=== PATIENT | female | born 1945 | race Caucasian/White ===

== ENCOUNTER 2020-12-07 12:30 | Outpatient (CLI) | payer MEDICARE, SELFPAY ==
--- NOTE | ~2020-12-07 | MR_ITS ---
EXAMINATION: MR knee LT wo con DATE: 12/07/2020 13:18 INDICATION: Medial left knee pain. Meniscal tear. TECHNIQUE: Magnetic resonance imaging (MRI) of the left knee was performed without intravenous contra st. Sequences included coronal PD-weighted FSE, coronal PD-weighted FS FSE, sagittal T2-weighted FSE , sagittal PD-weighted FS FSE and axial PD weighted fat saturated FSE. COMPARISON: None. FINDINGS: Medial compartment: Small radial tear along the inner free edge at the junction of the body and posterior horn of the med ial meniscus. There is partial thickness cartilage loss along the medial tibial plateau and along the anterior to central weightbearing medial femoral condyle where there is mild chondral surface irregu larity. No degenerative subchondral changes. Lateral compartment: Lateral meniscus is normal. Mild chondral surface irregularity and subtle chondral signal heterogenei ty at the central aspect of the lateral tibial plateau. Patellofemoral compartment: Diffuse mild partial-thickness patellar cartilage loss with mild chondral surface irregularity. Small focus of subarticular edema at the central aspect of the lateral patellar facet. There is also diffu se mild partial-thickness trochlear cartilage loss with higher grade chondromalacia at the caudal asp ect of the medial trochlea where there is underlying small central subchondral osteophyte. Ligaments and tendons: Anterior and posterior cruciate ligaments are normal. The medial collateral ligament and fibular jerel ateral ligament complex are normal. The extensor mechanism is normal. The visualized medial and later al hamstring tendons as well as the iliotibial band are normal. Fluid: Small left knee joint effusion at the suprapatellar pouch. No loose osteochondral bodies identified. Small to moderate-sized Pineda's cyst measuring 4.8 x 1.9 x 2.5 cm. Osseous/other: Normal marrow signal aside from the small focus of subarticular edema at the lateral patellar facet.. No fracture or pathologic marrow replacing process. IMPRESSION: 1. Small radial tear along the inner free edge at the junction of the body and posterior horn of the medial meniscus. 2. Mild medial and patellofemoral compartment predominant tricompartmental osteoarthritis. 3. Small left knee joint effusion and small to moderate-sized Pineda's cyst. Reviewed, dictated and finalized at location A. IMPRESSION: 1. Small radial tear along the inner free edge at the junction of the body and posterior horn of the medial meniscus. 2. Mild medial and patellofemoral compartment predominant tricompartmental oste oarthritis. 3. Small left knee joint effusion and small to moderate-sized Pineda's cyst.
== END 2020-12-07 12:31 | disposition home or self-care (01) ==
PROVIDERS: PCP Internal Medicine; Visit Provider Orthopaedic Surgery
DX: S83.242A Other tear of medial meniscus, current injury, left knee, initial encounter (principal); X58.XXXA Exposure to other specified factors, initial encounter; M25.462 Effusion, left knee; M71.22 Synovial cyst of popliteal space [Baker], left knee; M17.12 Unilateral primary osteoarthritis, left knee
CPT/HCPCS: 73721

== ENCOUNTER → 2021-01-03 01:13 | Outpatient (CLI) | payer MEDICARE, SELFPAY ==
[2021-01-03 20:54] LABS: SARS-CoV-2 RNA PCR Negative
== END ==
PROVIDERS: PCP Internal Medicine; Visit Provider Orthopaedic Surgery
DX: Z01.812 Encounter for preprocedural laboratory examination (principal); Z20.822 Contact with and (suspected) exposure to COVID-19
CPT/HCPCS: C9803; U0003; U0005

== ENCOUNTER 2021-01-06 01:21 | Day surgery (SDC) | payer MEDICARE, SELFPAY ==
[2020-12-26 13:39] VITALS: BMI 26.7
--- NOTE | 2021-01-06 06:48 | WPDANESEPPF ---
Anes - Initial Pre Proc Eval Procedure: Operation Date: 01/06/21 07:30 Proposed Procedures p Left Knee Arthroscopic Partial Medial Meniscectomy - Alex Larson MD Date/Time: 01/06/21 06:48 Surgeon: Alex Larson MD Pre Op Diagnosis: medial meniscus tear left knee Patient Data Age: 75 Gender: F Height: 1.65 m Weight: 74.2 kg Allergies Allergy/AdvReac Type Severity Reaction Status Date / Time No Known Allergies Allergy Verified 01/06/21 06:29 Home Medications Medication Instructions Recorded Confirmed Type cholecalciferol (vitamin D3) 125 mcg PO DAILY 12/26/20 01/06/21 History Patient hx anesthesia problems: none Family hx anesthesia problems: none PMFSH Past Medical History Medical History (Updated 12/01/20 @ 09:57 by Alex Larson MD) Lipoedema Lymphedema Mixed hyperlipidemia Polyarthritis Sigmoidoscopy performed Venous insufficiency Surgical History Surgical History (Updated 12/01/20 @ 09:29 by Alona Thomas MA) H/O arthroscopic knee surgery (~2013) Rt H/O hemorrhoidectomy (~2013) H/O repair of rotator cuff (~2010) History of bunionectomy (~2006) & Hammertoe - Rt History of carpal tunnel release (~1993) Bilateral History of cataract surgery (~2014) Hx of hysterectomy (~1982) Family History Family History (Updated 08/25/18 @ 13:12 by DOCTOR UNKNOWN) Father Family history of congestive heart failure Patient's father is Mother Family history of congestive heart failure Patient's mother is Sibling Patient's brother is in good health Other Hypertension Social History Social History Smoking status: Never smoker Alcohol intake: never Substance use: never Living arrangements: with family Additional living arrangements comments: Spiritual care concerns: No Anes - Eval Final PreProcedure Day of Procedure 01/06/21 06:48 Patient weight: overweight Heart: regular rate and rhythm Lungs: clear to auscultation and normal air movement Airway: Mallampati scale class III Neurological: alert and oriented Last oral intake: >/= 8 hours ASA classification: II Emergent: no Anesthetic plan: proceed Anesthesia type and monitoring: general LMA and standard monitoring Informed Consent: The patient's anesthetic plan and its attendant risks and benefits were discussed with the patient/family/POA. Questions were solicited and answers provided to the satisfaction of the patient/family/POA.
[2021-01-06] MEDS: ACETAMINOPHEN 500 MG TABLET 1000 MG PO (07:03)
[2021-01-06] MEDS: LACTATED RINGERS 1,000 ML 30 ML IV CONT (07:03)
[2021-01-06] MEDS: KETOROLAC 15 MG/ML VIAL (*BKC) IV PUSH (07:04)
[2021-01-06 07:14] VITALS: BP 179/78; PULSE 72; RESP 16; TEMP 36.7; O2SAT 97
--- NOTE | 2021-01-06 07:15 | WPDHPUPDATE1 ---
History and Physical Update Update Date/Time: 01/06/21 07:15 History and Physical has been reviewed, including an updated exam of the patient. There are NO changes in the patient's condition. Risks, benefits, and alternatives have been discussed and questions answered. Patient agrees to proceed with procedure.
[2021-01-06] MEDS: ceFAZolin 2 GM/D5W 50 ML 2 GM/50 ML BAG IVPB (07:26)
[2021-01-06] MEDS: BUPIVACAINE/EPINEPHRINE 0.5% 30 ML VIAL INFILTRATE (07:49)
--- NOTE | 2021-01-06 08:06 | PM.PROC ---
Procedure Note - Detailed Date of procedure: 01/06/21 Pre-op diagnosis: medial meniscus tear left knee Medial meniscus tear, left knee. Post-op diagnosis: same Procedure performed: Arthroscopic partial medial meniscectomy, left knee Description of procedure: Extensive tear at the posteromedial corner. Subtotal meniscectomy required. Capsule rent noted. Popliteal fluid expressed. Grade I chondromalacia femur with small area grade 4 at the non weightbearing anteromedial area. Grade 2 medial tibia near the tear. Lateral compartment and ACL normal. Grade 2 central patella. Anesthesia: GETA Surgeon: Alex Larson MD Estimated blood loss (mL): 5 Tourniquet time (min): 12 Complications: None Condition: stable Disposition: PACU Findings: Brief History: The patient complained of knee pain, swelling and mechanical symptoms despite conservative treatment. MRI confirmed the presence of a meniscus tear. Procedure Details: The patient was identified and the surgical site confirmed and signed in the preoperative holding area. Antibiotics were started per protocol. She was brought to the operative room and transferred to the OR table. A general anesthetic was administered. Supine position with the operative lower extremity position in the leg wolf after placement of a well padded tourniquet. The leg support was lowered and the contralateral limb was supported with a soft bolster. The knee was prepped and draped in the usual sterile fashion. A time-out was performed. The portal sites were marked and infiltrated with 0.5% Marcaine 20 mL. The limb was exsanguinated and the tourniquet inflated to 300 mL Hg. Standard inferolateral and inferomedial portals were established. Inflow was obtained with the saline pump. The camera was introduced. Diagnostic inspection of the joint was accomplished. The meniscus was debrided with the arthroscopic shaver and punches until stable. The arthroscopic instruments were removed. The tourniquet released and wounds closed with subcutaneous 3-0 Monocryl absorbable suture. Steri strips and a sterile dressing were applied. A light elastic wrap was placed. The patient was extubated and brought to the recovery room in stable condition.
[2021-01-06 08:12] VITALS: BP 114/54; PULSE 70; RESP 12; TEMP 36.7; O2SAT 98
[2021-01-06 08:25] VITALS: BP 122/53; PULSE 60; RESP 20; O2SAT 100
[2021-01-06 08:40] VITALS: BP 132/60; PULSE 60; RESP 22; O2SAT 100
[2021-01-06 09:01] VITALS: BP 137/43; PULSE 73
[2021-01-06] MEDS: oxyCODONE HCL (*CRX) 2.5 MG TAB IR PO (09:05)
[2021-01-06 09:31] VITALS: BP 137/43; PULSE 75
== END 2021-01-06 09:50 | disposition home or self-care (01) ==
PROVIDERS: PCP Internal Medicine; Visit Provider Orthopaedic Surgery
PROC: (CPT 29870; principal; 2021-01-06 07:30)
DX: M23.332 Other meniscus derangements, other medial meniscus, left knee (principal); E78.2 Mixed hyperlipidemia
CPT/HCPCS: 29881; A9270; C9803; J0690; J1100; J1885; J2405; J2704; J3010; J7120; U0003; U0005

== ENCOUNTER 2021-02-17 07:30 | Outpatient (RCR) | payer MEDICARE, SELFPAY ==
--- NOTE | 2021-01-16 08:27 | PTOPEVAL ---
Thank you for referring Nayana Neumann to [facility].? The patient is scheduled to be seen for therapy? 2 x/week for 6 weeks. Please review, sign, date and return this plan of care HANK. I agree with and certify that the following plan of care is medically necessary. Referring Physician Date Attending Provider: Alex Larson MD Physical Therapy Evaluation Diagnosis left partial medial meniscectomy Onset 01/06/21 Additional Evaluation Detail Pineda's cyst leaking. 09/12/20 she fell backwards, then she started having knee pain. She tried treatment and a brace without improved symptoms. Subjective Information She reports limitations with Query Text:As Reported By Patient/ distance walking, squating, Family lifting heavier objects, descending steps, and normal recreational activities. She does a regular walking program of 45 minutes. Pain Assessment Pain Scale Used Numeric (1 - 10) Self Report Pain Assessment Left Knee(s) Reported Pain Level 0 Pain Description Sharp,Shooting Pain Frequency Acute,Intermittent Lowest Pain Intensity 0 Greatest Pain Intensity 5 Pain Aggravating Factors Bending,Lifting,Stair Climbing, Walking,Weight Bearing/ Standing Lower Extremity Range of Motion Knee Range of Motion Right Knee Flexion Range of Motion - Active 130 Knee Extension Range of Motion - Active 0 Query Text: Left Knee Flexion Range of Motion - Active 120 Knee Extension Range of Motion - Active -8 Query Text: Lower Extremity Muscle Strength Testing Hip Strength Bilateral Hip Flexion Strength 5 Normal Hip Extension Strength 3+ Fair + Hip Abduction Strength 3- Fair - Knee Strength Right Knee Flexion Strength 3+ Fair + Knee Extension Strength 5 Normal Left Knee Flexion Strength 3+ Fair + Knee Extension Strength 4+ Good + Muscle Length Testing Muscle Length Testing Two-Joint Hip Flexor Shortened Muscles Short (R) Iliopsoas,Short (L) Iliopsoas,Short (R) Rectus Femoris,Short (L) Rectus Femoris,Short (R) Ilial Tib Band,Short (L) Ilial Tib Band Piriformis w/Hip Flexion >90 Degrees (R) Mild Tightness,(L) Mild Tightness Left Hamstring Length -40 Query Text:(90 - 90 Position) Right Hams
--- NOTE | 2021-02-17 08:18 | PTOPEVAL ---
Thank you for referring Nayana Neumann to [facility].? Nayana has received 10 therapy visits to address leg limitations related to her knee surgery. She demonstrates indep with her home program and has achieved maximal potential with skilled therapy services at this time. Will DC skilled therapy services at this time. Please review, sign, date and return this discharge summary HANK. I agree with and certify that the following plan of care is medically necessary. Referring Physician Date Attending Provider: Alex Larson MD Physical Therapy discharge note Diagnosis left partial medial menisectomy Onset 01/06/21 Additional Evaluation Detail Pineda's cyst leaking. 09/12/20 she fell backwards, then she started having knee pain. She tried treatment and a brace without improved symptoms. Subjective Information She reports improved ability Query Text:As Reported By Patient/ to tolerate distance walking. Family Reports soreness with walking. She cont to c/o swelling of the knee. Denies problems with squating or getting off of a lower surface. Denies difficulty with steps, just performs steps slowly. Pain Assessment Self Report Pain Assessment Left Knee(s) Reported Pain Level 2 Pain Description Soreness Pain Frequency Acute,Intermittent Lowest Pain Intensity 2 Greatest Pain Intensity 4 Pain Aggravating Factors Walking Lower Extremity Range of Motion Knee Range of Motion Left Knee Flexion Range of Motion - Active 130 Knee Extension Range of Motion - Active -3 Query Text: Lower Extremity Muscle Strength Testing Hip Strength Bilateral Hip Flexion Strength 5 Normal Hip Extension Strength 3+ Fair + Hip Abduction Strength 3 Fair Knee Strength Right Knee Flexion Strength 5 Normal Knee Extension Strength 5 Normal Left Knee Flexion Strength 5 Normal Knee Extension Strength 4+ Good + Knee Strength Comments no demonstration of left extensor lag with SLR Special Tests-Lower Extremity Hip Special Tests Trendelenburg Sign Positive Right Hip Scouring Positive Right Hip Special Test Comments single leg stance: 1 sec hero LE demo proper LE control with squating to warehouse 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
== END 2021-02-17 13:44 | disposition home or self-care (01) ==
LOC: ANHPT 07:30
PROVIDERS: PCP Internal Medicine; Visit Provider Orthopaedic Surgery
DX: Z48.89 Encounter for other specified surgical aftercare (principal)
CPT/HCPCS: 97110; 97140; 97161; 97530

== ENCOUNTER → 2021-09-02 12:37 | Outpatient (CLI) | payer MEDICARE, SELFPAY ==
--- NOTE | ~2021-09-02 | XR_ITS ---
XR sacrum coccyx min 2V DATE: 09/02/2021 13:18 INDICATION: Sacral and coccygeal pain TECHNIQUE: AP, angled AP and lateral views COMPARISON: None Findings: There is diffuse osteopenia. Pubic symphysis and sacroiliac joints are intact. No sacral or coccygeal fracture or bone destruction is evident. IMPRESSION: Osteopenia; no fracture or bone destruction is detected Reviewed, dictated and finalized at location B. WORKER
--- NOTE | ~2021-09-02 | XR_ITS ---
XR hip BI 2V w AP pelvis DATE: 09/02/2021 13:18 INDICATION: Aneurysm bilateral hip pain TECHNIQUE: AP pelvis. AP and lateral views of each hip. COMPARISON: None FINDINGS: There is osteopenia. No pelvic fracture or bone destruction. The pubic symphysis and sacroi liac joints are intact. Hip joint spaces are relatively preserved. There is minimal degenerative spur ring at the left hip joint. There is mild rotatory levoscoliosis and multilevel degenerative disc disease of the lumbar spine. IMPRESSION: Mild osteoarthritis of left hip Osteopenia Reviewed, dictated and finalized at location B. VERY MAN
--- NOTE | ~2021-09-02 | XR_ITS ---
XR lumbar spine 2-3V DATE: 09/02/2021 13:18 INDICATION: Fall; back injury and pain. TECHNIQUE: AP, lateral and lateral lumbosacral views COMPARISON: None FINDINGS: There is prominent diffuse osteopenia. There is degenerative change of the lower thoracic spine with particularly severe degenerative disc d isease at T11-12. There is moderate multi-level degenerative disc disease of the lumbar spine. No fracture or bone destruction is detected. The lumbar pedicles are intact. There is mild to moderate rotatory levoscoliosis of the lumbar spine. The sacroiliac joints are intact. IMPRESSION: Diffuse osteopenia Mild to moderate rotatory levoscoliosis of lumbar spine Degenerative changes of lower thoracic and lumbar spine Reviewed, dictated and finalized at location B. E SITTER
== END ==
PROVIDERS: PCP Internal Medicine; Visit Provider Nurse Practitioner
DX: M54.9 Dorsalgia, unspecified (principal); W19.XXXA Unspecified fall, initial encounter; M85.89 Other specified disorders of bone density and structure, multiple sites; M16.12 Unilateral primary osteoarthritis, left hip; M41.86 Other forms of scoliosis, lumbar region
CPT/HCPCS: 72100; 72220; 73521

== ENCOUNTER 2021-09-19 06:21 | Outpatient (CLI) | payer MEDICARE, SELFPAY ==
[2021-09-19 09:00] LABS: Alanine Aminotransferase 14 U/L (4-35); Albumin Level 4.4 g/dL (3.5-5.1); Alkaline Phosphatase 125 U/L (38-126); Anion Gap 7 mmol/L (8-16); Aspartate Amino Transferase 25 U/L (14-36); Bilirubin,Total 0.5 mg/dL (0.2-1.3); Blood Urea Nitrogen 20 mg/dL (7-17); Calcium 9.1 mg/dL (8.4-10.2); Carbon Dioxide 29 mmol/L (22-30); Chloride 103 mmol/L (98-107); Cholesterol 187 mg/dL (0-200); Estimated Glomerular Filt Rate > 60; Glucose 103 mg/dL (65-110); HDL Direct 62 mg/dL; Potassium 4.4 mmol/L (3.4-5.0); Sodium 139 mmol/L (137-145); Triglycerides 76 mg/dL (<150)
[2021-09-19 09:11] LABS: LDL Cholesterol Direct 91 mg/dL
[2021-09-19 09:54] LABS: Vitamin D 25 Hydroxy 87.7 ng/mL
== END 2021-09-19 06:22 | disposition home or self-care (01) ==
LOC: ANHLAB 10-19 06:21
PROVIDERS: PCP Internal Medicine; Visit Provider Nurse Practitioner
DX: E78.5 Hyperlipidemia, unspecified (principal); E55.9 Vitamin D deficiency, unspecified
CPT/HCPCS: 36415; 80053; 80061; 82306; 84443

== ENCOUNTER → 2021-11-05 07:38 | Outpatient (CLI) | payer MEDICARE, SELFPAY ==
--- NOTE | ~2021-11-05 | MR_ITS ---
EXAMINATION: MR lumbar spine wo con DATE: 11/05/2021 08:15 INDICATION: Low back pain, unspecified. TECHNIQUE: Magnetic resonance imaging (MRI) of the lumbar spine was performed without intravenous con trast. Sequences included sagittal T2-weighted FSE, sagittal T2-weighted FS FSE, sagittal T1-weighted FSE, and axial T2-weighted FSE. COMPARISON: Lumbar spine radiographs 09/02/21, CT abdomen and pelvis 11/26/2016 FINDINGS: There is 19 degrees levoscoliosis of lumbar spine. There is 3 mm retrolisthesis of T11 on T 12, 4 mm retrolisthesis of T12 on L1, and 3 mm retrolisthesis of L1 on L2. There is 4 mm anterolisth esis of L4 on L5. There is a compression fracture of inferior endplate of T12 with 2/5 loss of height and bone marrow edema. There is mild chronic anterior wedging of T11 vertebral body. There is severe ly decreased disc height at T10-T11, T11-T12, T12-L1, and L2-L3 and mildly decreased disc height at L 1-L2, L3-L4, L4-L5, and L5-S1 with endplate remodeling. The distal spinal cord signal intensity is no rmal. The conus medullaris is at L1. There is a 4.1 cm mass in right adrenal gland that contained fat by CT, consistent with a myelolipoma. There are cysts in the kidneys measuring up to 4.5 cm on the l eft. The following disc levels are specifically discussed: T12-L1: The disc is bulging. There is moderate right and mild left facet joint osteoarthritis. There is moderate right and mild left neural foraminal stenosis. There is mild central canal stenosis. L1-L2: The disc is bulging. There is mild bilateral facet joint osteoarthritis. There is mild bilater al neural foraminal stenosis. There is mild central canal stenosis. L2-L3: The disc is bulging. There is severe bilateral facet joint osteoarthritis. There is mild bilat eral neural foraminal stenosis. There is mild central canal stenosis. L3-L4: The disc is bulging. There is severe bilateral facet joint osteoarthritis. There is mild bilat eral neural foraminal stenosis. There is mild central canal stenosis. L4-L5: The disc is bulging and has an annular fissure. There is severe bilateral facet joint osteoart hritis. There is mild bilateral neural foraminal stenosis. There is mild central canal stenosis. L5-S1: The disc is bulging. There is severe bilateral facet joint osteoarthritis. There is mild left neural foraminal stenosis. There is no central canal stenosis. IMPRESSION: 1. Subacute T12 compression fracture, worsened from 09/02/2021. 2. Severe lumbar spondylosis. 3. Lumbar levoscoliosis. Reviewed, dictated and finalized at location A. 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
== END ==
PROVIDERS: PCP Internal Medicine; Visit Provider Nurse Practitioner
DX: M54.50 Low back pain, unspecified (principal); M48.54XA Collapsed vertebra, not elsewhere classified, thoracic region, initial encounter for fracture; M47.816 Spondylosis without myelopathy or radiculopathy, lumbar region; M41.86 Other forms of scoliosis, lumbar region
CPT/HCPCS: 72148

== ENCOUNTER 2021-12-14 02:35 | Day surgery (SDC) | payer MEDICARE, SELFPAY ==
[2021-12-04 13:49] VITALS: BMI 25.8
[2021-12-14 08:10] VITALS: BP 165/52; PULSE 91; RESP 16; TEMP 36.6; O2SAT 100; BMI 25.7
[2021-12-14] MEDS: LACTATED RINGERS 1,000 ML 150 ML IV CONT (08:30)
--- NOTE | 2021-12-14 08:44 | WPDGICN ---
Assessment and Plan Assessment and plan (1) Screening for colon cancer: Code(s): Z12.11 - Encounter for screening for malignant neoplasm of colon Status: Acute Assessment and Plan: Colonoscopy with possible biopsy or polypectomy or cautery or injection of substances. GI Consult Note Consult date/time: 12/14/21 08:44 HPI: Nayana Neumann is a 76 year old female Referred for colon cancer screening. She recently performed a Cologuard test which was positive. She does not see blood in her stools. She had hemorrhoidectomy about 8 years ago. Review of Systems Review of Systems: All systems reviewed & are unremarkable except as noted in HPI and below PMFSH Past Medical History Medical History Lipoedema Lymphedema Mixed hyperlipidemia Polyarthritis Sigmoidoscopy performed Venous insufficiency Surgical History Surgical History H/O arthroscopic knee surgery (~2013) Rt H/O hemorrhoidectomy (~2013) H/O repair of rotator cuff (~2010) History of appendectomy History of bunionectomy (~2006) & Hammertoe - Rt History of carpal tunnel release (~1993) Bilateral History of cataract surgery (~2014) History of tonsillectomy Hx of hysterectomy (~1982) Family History Family History Father Family history of congestive heart failure Patient's father is Mother Family history of congestive heart failure Patient's mother is Sibling Patient's brother is in good health Other Hypertension Social History Social History Second hand tobacco smoke exposure: No Alcohol intake: never Substance use: never Substance use type: does not use Living arrangements: with family Additional living arrangements comments: Spiritual care concerns: No Meds Home Medications and Allergies Home Medications Medication Instructions Recorded Confirmed Type cholecalciferol (vitamin D3) 125 mcg PO DAILY 12/26/20 12/14/21 History Allergies Allergy/AdvReac Type Severity Reaction Status Date / Time No Known Allergies Allergy Verified 12/14/21 08:09 Vital Signs Vital Signs - 24 hr 12/14/21 08:10 Temperature 36.6 C Pulse Rate 91 Respiratory Rate 16 Blood Pressure 165/52 H Pulse Oximetry 100 Exam Resp: Auscultation: clear to auscultation bilaterally Cardio: Rate: regular rate Rhythm: regular rhythm GI: GI Palp: Yes Soft to palpation and No Tenderness to palpation present (GI)
--- NOTE | 2021-12-14 08:51 | P.PNAN_ITS ---
Anes - Initial Pre Proc Eval Procedure: Operation Date: 12/14/21 09:30 Proposed Procedures p Colonoscopy - Aryan Miranda MD Date/Time: 12/14/21 08:51 Surgeon: Aryan Miranda MD Pre Op Diagnosis: positive cologuard Patient Data Age: 76 Gender: F Height: 1.65 m Weight: 70.1 kg Last Vital Signs Temp 97.8 F 12/14/21 08:10 Pulse 91 12/14/21 08:10 Resp 16 12/14/21 08:10 BP 165/52 H 12/14/21 08:10 Pulse Ox 100 12/14/21 08:10 Allergies Allergy/AdvReac Type Severity Reaction Status Date / Time No Known Allergies Allergy Verified 12/14/21 08:09 Home Medications Medication Instructions Recorded Confirmed Type cholecalciferol (vitamin D3) 125 mcg PO DAILY 12/26/20 12/14/21 History Patient hx anesthesia problems: none Family hx anesthesia problems: none Results Review: All pre-operative results and documents have been reviewed as part of the pre-operative evaluation. [facility] Past Medical History Medical History Lipoedema Lymphedema Mixed hyperlipidemia Polyarthritis Sigmoidoscopy performed Venous insufficiency Surgical History Surgical History H/O arthroscopic knee surgery (~2013) Rt H/O hemorrhoidectomy (~2013) H/O repair of rotator cuff (~2010) History of appendectomy History of bunionectomy (~2006) & Hammertoe - Rt History of carpal tunnel release (~1993) Bilateral History of cataract surgery (~2014) History of tonsillectomy Hx of hysterectomy (~1982) Family History Family History Father Family history of congestive heart failure Patient's father is Mother Family history of congestive heart failure Patient's mother is Sibling Patient's brother is in good health Other Hypertension Social History Social History Second hand tobacco smoke exposure: No Alcohol intake: never Substance use: never Substance use type: does not use Living arrangements: with family Additional living arrangements comments: Spiritual care concerns: No Anes - Eval Final PreProcedure Day of Procedure 12/14/21 08:51 Patient weight: normal Heart: regular rate and rhythm Lungs: clear to auscultation Airway: Mallampati scale class III Neurological: alert and oriented Last oral intake: >/= 8 hours ASA classification: II Emergent: no Anesthetic plan: proceed Anesthesia type and monitoring: general GIVS and standard monitoring Results Review: All pre-operative results and documents have been reviewed as part of the pre-operative evaluation. Informed Consent: The patient's anesthetic plan and its attendant risks and benefits were discussed with the patient/family/POA. Questions were solicited and answers provided to the satisfaction of the patient/family/POA.
[2021-12-14 09:20] VITALS: BP 161/84; PULSE 97; RESP 16; O2SAT 97
[2021-12-14 09:30] VITALS: BP 158/90; PULSE 94; RESP 16; O2SAT 94
[2021-12-14 09:35] VITALS: BP 158/75; PULSE 94; RESP 16; O2SAT 94
== END 2021-12-14 09:44 | disposition home or self-care (01) ==
PROVIDERS: PCP Internal Medicine; Visit Provider Internal Medicine Gastroenterology
PROC: 0DJD8ZZ Inspection of Lower Intestinal Tract, Via Natural or Artificial Opening Endoscopic (ICD-10-PCS; CPT 45378; principal; 2021-12-14 09:30)
DX: Z12.11 Encounter for screening for malignant neoplasm of colon (principal); K64.8 Other hemorrhoids; D12.5 Benign neoplasm of sigmoid colon; R19.5 Other fecal abnormalities
CPT/HCPCS: 45385; 45381; 88305; J2704; J7120

== ENCOUNTER 2021-12-22 06:42 | Outpatient (CLI) | payer MEDICARE, SELFPAY ==
--- NOTE | ~2021-12-22 | CT_ITS ---
EXAMINATION: CT abdomen wo/w con INDICATION: Adrenal mass TECHNIQUE: Computed tomographic images of the abdomen were obtained without intravenous contrast then after the administration of 100 cc of Omnipaque 350 intravenous contrast in the portal venous phase and after 10 minute delay. The dose-length product (DLP) was 461.63 mGy-cm. Automated exposure contro l and iterative reconstruction technique were employed. COMPARISON: 11/26/2016 FINDINGS: Minimal dependent atelectasis is present in the lung bases. The heart size is normal. The l iver, spleen, pancreas, and gallbladder are normal. There is a stable 4.1 x 3.1 cm right adrenal mass containing macroscopic fat, consistent with a myelolipoma. Also seen are bilateral adrenal calcifica tions consistent with prior hemorrhage or infection. There are multiple simple cysts of the kidneys w hich measure up to 4.5 cm on the left. A proteinaceous cyst is noted in the right mid kidney. There i s a 3 mm nonobstructing stone of the left kidney. A 4 mm nonobstructing stone is noted in the right k idney. There are no pathologically enlarged abdominal lymph nodes. There is no free intraperitoneal g as or evidence of bowel obstruction. A small sliding hiatal hernia is noted. Vertebroplasty changes n oted in the T12 vertebral body. There is severe lower thoracic spondylosis. IMPRESSION: 1. Stable right adrenal mass, consistent with a benign myelolipoma. 2. Bilateral adrenal calcifications, consistent with prior infection or hemorrhage. Reviewed, dictated and finalized at location A. IMPRESSION: 1. Stable right adrenal mass, consistent with a benign myelolipoma. 2. Bilateral adrenal calcifications, consistent with prior infection or hemorrh age.
[2021-12-22 07:06] LABS: Estimated Glomerular Filt Rate > 60
== END 2021-12-22 06:43 | disposition home or self-care (01) ==
PROVIDERS: PCP Internal Medicine; Visit Provider Internal Medicine
DX: E27.8 Other specified disorders of adrenal gland (principal); N20.0 Calculus of kidney; N28.1 Cyst of kidney, acquired; K44.9 Diaphragmatic hernia without obstruction or gangrene; M47.814 Spondylosis without myelopathy or radiculopathy, thoracic region; E27.49 Other adrenocortical insufficiency
CPT/HCPCS: 74170; Q9967

== ENCOUNTER 2022-01-06 13:48 | Outpatient (CLI) | payer MEDICARE, SELFPAY ==
--- NOTE | ~2022-01-06 | MM_ITS ---
EXAMINATION: MM screening daphnie BI w shanae HISTORY: Screening TECHNIQUE: Craniocaudal and mediolateral oblique 3-D tomosynthesis images were obtained and synthetic 2-D images were generated. CAD analysis was submitted and interpreted. COMPARISON: No prior mammogram is available for comparison at this institution. BREAST PARENCHYMAL COMPOSITION: The breasts are extremely dense, which lowers the sensitivity of mamm ography. FINDINGS: There is no evidence of suspicious mass, calcification, or architectural distortion to sugg est malignancy in either breast. There has been no suspicious interval change. IMPRESSION: 1. No mammographic evidence of malignancy. 2. Recommend routine screening mammography in one year. BI-RADS Category 1: Negative Reviewed, dictated and finalized at location A.
--- NOTE | ~2022-01-06 | DEXA_ITS ---
Bone Density Report Name: AZEEM BROWNING Age: 76 Sex: Female Ethnicity: White Date of : 1945 Indication: postmenopausal; screening for osteoporosis; height loss; hysterectomy; Referring Provider: RONNIE STYLES Study: Bone densitometry was performed. Exam Date: January 06, 2022 Accession number: [id number] Bone Density: Region BMD T-score Z-score Classification AP Spine(L1-L4) 0.872 -1.6 1.0 Osteopenia Femoral Neck (Left) 0.678 -1.5 0.7 Osteopenia Total Hip (Left) 0.826 -1.0 1.0 Normal Femoral Neck (Right) 0.686 -1.5 0.7 Osteopenia Total Hip (Right) 0.812 -1.1 0.9 Osteopenia Total Hip Mean 0.819 -1.1 1.0 Osteopenia World Health Organization criteria for BMD impression classify patients as: Normal (T-score at or above -1.0), Osteopenia (T-score between -1.0 and -2.5), or Osteoporosis (T-score at or below -2.5). 10-year Fracture Risk(1): Major Osteoporotic Fracture 12% Hip Fracture 2.8% Reported Risk Factors: [place] (), Neck BMD=0.678, BMI=29.3 (1) FRAX(R) Version 3.08. Fracture probability calculated for an untreated patient. Fracture probability may be lower if the patient has received treatment. Clinical Information Provided by Patient: Has used the following medications: Vitamin D Has the following medical conditions: Hysterectomy Patient maximum height was 64 Menopause Age: 49 Onset of menses at age 11 Number of children 1 Impression: The patient has low bone mass, based on the Total Spine T-score. The patient has an estimated ten-year risk of hip fracture of 2.8% and an estimated ten-year risk of major fracture of 12%, based on the WHO FRAX algorithm. Discussion: BONE DENSITY IS LOW AT ONE OR MORE SKELETAL SITES. This patient's lowest T-score is low at one or more skeletal sites. It meets the World Health Organization's (WHO) criteria for ?low bone mass? (T-score between -1.0 and -2.5). The patient's 10-year risk of fracture as calculated by FRAX is less than the threshold where pharmacological therapy is recommended by the National Osteoporosis Foundation (NOF). However, all treatment decisions require clinical judgment and consideration of individual patient factors, including patient preferences, comorbidities, previous drug use, risk factors not captured in the FRAX model (e.g., frailty, falls, vitamin D deficiency, increased bone turnover, interval significant decline in bone density) and possible under or overestimation of fracture risk by FRAX. The patient should follow a healthful lifestyle (good nutrition with adequate calcium and vitamin D, and appropriate weight-bearing exercise). Follow-Up: Consider repeating this study in 2 to 3 years to reassess this patient's status, or sooner if there is some new clinical indication. Reported by:
== END 2022-01-06 13:49 | disposition home or self-care (01) ==
LOC: ANHIMG 13:50
PROVIDERS: PCP Internal Medicine; Visit Provider Nurse Practitioner
DX: Z12.31 Encounter for screening mammogram for malignant neoplasm of breast (principal); Z78.0 Asymptomatic menopausal state; M85.89 Other specified disorders of bone density and structure, multiple sites
CPT/HCPCS: 77063; 77067; 77080

== ENCOUNTER 2023-01-26 08:32 | Emergency (ER) | payer MEDICARE, SELFPAY ==
--- NOTE | 2023-01-26 08:48 | ED.URI ---
HPI - URI/Sore Throat General Stated Complaint: ear discomfort Time Seen by Provider: 01/26/23 08:48 Source: patient Mode of arrival: ambulatory Limitations: no limitations Related Data Home Medications Medication Instructions Recorded Confirmed cholecalciferol (vitamin D3) 125 125 mcg PO DAILY 12/26/20 12/14/21 mcg (5,000 unit) capsule Allergies Allergy/AdvReac Type Severity Reaction Status Date / Time No Known Allergies Allergy Verified 12/14/21 08:09 Review of Systems Review of Systems: All systems reviewed & are unremarkable except as noted in HPI and below Constitutional: Constitutional: Denies body ache(s), Denies chills, Denies fatigue, Denies fever(s), Denies headache(s), Denies malaise and Denies weakness Eyes: Eyes: Denies blurry vision, Denies itchy eyes and Denies loss of vision ENT: Denies otalgia, Denies headache(s), Reports nasal congestion, Denies sinus pain and Denies sore throat Cardiovascular: Cardiovascular: Denies chest pain, Denies irregular heart rhythm and Denies dyspnea Respiratory: Respiratory: Reports cough and Denies dyspnea Gastrointestinal: Gastrointestinal: Denies abdominal pain, Denies diarrhea, Denies nausea and Denies vomiting Musculoskeletal: Musculoskeletal: Denies back pain, Denies myalgias and Denies arthralgias Integumentary/Breasts: Skin/Breast: Denies pruritus and Denies rash Neurologic: Denies headache(s), Denies loss of vision and Denies weakness Psychiatric: Psychiatric: Reports no additional psychiatric complaints Endocrine: Endocrine: Denies fatigue Allergic/Immunologic: Allergic/Immunologic: Denies itchy eyes PMFSH Past Medical History Medical History Lipoedema Lymphedema Mixed hyperlipidemia Polyarthritis Sigmoidoscopy performed Venous insufficiency Surgical History Surgical History H/O arthroscopic knee surgery (~2013) Rt H/O hemorrhoidectomy (~2013) H/O repair of rotator cuff (~2010) History of appendectomy History of bunionectomy (~2006) & Hammertoe - Rt History of carpal tunnel release (~1993) Bilateral History of cataract surgery (~2014) History of tonsillectomy Hx of hysterectomy (~1982) Family History Family History Father Family history of congestive heart failure Patient's father is Mother Family history of congestive heart failure Patient's mother is Sibling Patient's brother is in good health Other Hypertension Social History Social History Smoking status: Never smoker Second hand tobacco smoke exposure: No Alcohol intake: never Substance use: never Substance use type: does not use Living arrangements: with family Additional living arrangements comments: Spiritual care concerns: No Comments At time of signature, agree with nursing past medical, surgical, social and family history. There is no relevant family history pertinent to the presenting complaint. Exam Const: General: cooperative, healthy appearing, comfortable, no acute distress and well nourished Nutritional Appearance: well nourished Orientation/consciousness: patient oriented x3 Limitations: no limitations HENMT: Head: normal to inspection, normocephalic and atraumatic Ears: hearing grossly normal bilaterally, external ears normal, TM's normal bilaterally, EAC's normal and no periauricular adenopathy Face/Nose/Sinus: Normal external nose present, Abnormal mucous membranes and turbinates present erythematous bilateral and diffuse, normal facial exam, sinuses nontender and face symmetric Face and sinus: normal facial exam, sinuses nontender and face symmetric Mouth: Yes Normal oral and palatal mucosa present, Yes lip normal, Yes tongue normal, Yes Normal salivary glands an
[2023-01-26 08:59] VITALS: BP 169/60; PULSE 70; RESP 18; TEMP 36.3; O2SAT 98
--- NOTE | 2023-01-26 09:05 | ED.EAR ---
HPI - Ear Problem General Chief complaint: Ear Stated complaint: ear discomfort Time Seen by Provider: 01/26/23 08:48 Source: patient Mode of arrival: ambulatory Limitations: no limitations History of Present Illness HPI Narrative: Patient is a 78-year-old female who presents with bilateral ear fullness for a week. Patient states she went to an research management associate yesterday and was told she has a lot of wax but they were unable to irrigate due to time constraints. Patient states she got [id number] earwax remover kit and was able to get wax out of right ear but not left. Denies any pain, congestion, cough, fever. Does state she feels like she is hearing through a well. Complaint: ear pain Related Data Home Medications Medication Instructions Recorded Confirmed cholecalciferol (vitamin D3) 125 125 mcg PO DAILY 12/26/20 01/26/23 mcg (5,000 unit) capsule Allergies Allergy/AdvReac Type Severity Reaction Status Date / Time No Known Allergies Allergy Verified 01/26/23 09:05 Review of Systems Review of Systems: All systems reviewed & are unremarkable except as noted in HPI and below Constitutional: Constitutional: Denies body ache(s), Denies chills, Denies fever(s), Denies headache(s) and Denies malaise Eyes: Eyes: Denies blurry vision, Denies eye discharge and Denies irritation ENT: Denies headache(s), Denies nasal congestion, Denies nasal discharge, Denies sore throat and Reports other (Ear fullness) Cardiovascular: Cardiovascular: Denies chest pain, Denies edema, Denies palpitations and Denies dyspnea on exertion Respiratory: Respiratory: Denies cough and Denies dyspnea on exertion Gastrointestinal: Gastrointestinal: Denies abdominal pain, Denies diarrhea, Denies nausea and Denies vomiting Musculoskeletal: Musculoskeletal: Denies back pain, Denies arthralgias and Denies muscle weakness Integumentary/Breasts: Skin/Breast: Denies pruritus and Denies rash Neurologic: Denies headache(s) Psychiatric: Psychiatric: Reports no additional psychiatric complaints Endocrine: Endocrine: Denies palpitations PMFSH Past Medical History Medical History Lipoedema Lymphedema Mixed hyperlipidemia Polyarthritis Sigmoidoscopy performed Venous insufficiency Surgical History Surgical History H/O arthroscopic knee surgery (~2013) Rt H/O hemorrhoidectomy (~2013) H/O repair of rotator cuff (~2010) History of appendectomy History of bunionectomy (~2006) & Hammertoe - Rt History of carpal tunnel release (~1993) Bilateral History of cataract surgery (~2014) History of tonsillectomy Hx of hysterectomy (~1982) Family History Family History Father Family history of congestive heart failure Patient's father is Mother Family history of congestive heart failure Patient's mother is Sibling Patient's brother is in good health Other Hypertension Social History Social History Smoking status: Never smoker Second hand tobacco smoke exposure: No Alcohol intake: never Substance use: never Substance use type: does not use Living arrangements: with family Additional living arrangements comments: Spiritual care concerns: No Comments At time of signature, agree with nursing past medical, surgical, social and family history. There is no relevant family history pertinent to the presenting complaint? Exam Const: General: cooperative, healthy appearing, no acute distress and well nourished Nutritional Appearance: well nourished Orientation/consciousness: patient oriented x3 Limitations: no limitations HENMT: Head: normal to inspection, normocephalic and atraumatic Ears: hearing grossly normal bilaterally, EAC's normal, no periauricular a
== END 2023-01-26 09:48 | disposition home or self-care (01) ==
PROVIDERS: Emergency Provider Nurse Practitioner Family; PCP Nurse Practitioner
DX: H61.23 Impacted cerumen, bilateral (principal); E78.2 Mixed hyperlipidemia
CPT/HCPCS: 69210; 99213; A9270; G0463

== ENCOUNTER 2024-03-30 00:18 | Day surgery (SDC) | payer MEDICARE, SELFPAY ==
[2024-03-27 13:59] VITALS: BMI 24.5
--- NOTE | 2024-03-27 14:05 | PC.NURSE ---
Report to the Outpatient Waiting Room, entrance under the green pavilion located off [facility], at time _0830 on date __03/30/24 . Planned Procedure Time: ___1030 . Time changes happen often and if your time is changed the preop area will call you the afternoon before. - You and your visitor will be asked to self-screen and do not enter if you have any COVID symptoms. - A mask is optional within the hospital at this time. Patients may have clear liquids (water, carbonated beverages, clear teas, apple juice) until 3 hours prior to surgery with a maximum of 20 ounces. - No food from midnight until time of surgery - Infants may have breast milk until 4 hours before surgery, infant formula 6 hours prior to surgery. - Children will be allowed to drink immediately following surgery. If applicable, please bring a bottle or sippy cup to assist with drinking. Juice, water, soda, and popsicles are readily available. For infants on formula, please bring formula the day of surgery. Pacifiers are allowed. Take the following medications with a SIP of water the morning of surgery: ARIPIPRAZOLE, BUPROPION DO NOT STOP ANY OF YOUR OTHER PRESCRIPTION MEDICATIONS PRIOR TO SURGERY ?EXCEPT THE FOLLOWING Medications to discontinue per physician NONE Date to take last dose Please no make-up, nail frisian, hairspray, perfume, deodorant, or body powder the day of surgery. No jewelry (including any body piercings) or valuables the day of surgery, leave them at home. Please take a shower or bath the night before, or the morning of, surgery with an antibacterial soap. Wear comfortable, loose fitting clothing. Children are encouraged to wear pajamas. - Jewelry must be removed prior to entering the operating room. Rings and piercings that are not removed may be cut off. - The hospital will not accept responsibility for valuables. - Please leave all valuables, including medications, at home the day of surgery. If you are going home after surgery, a licensed home delivery driver must drive you home. - NO public transportation without another adult if you receive anesthesia. - We recommend that an adult stay with you for 24 hours following discharge. - We also recommend that you do not drive, make important decision, drink alcoholic beverages, or take any drugs that were not prescribed by your health care provider for at least 24 hours after your discharge time. For Pediatric surgeries, we recommend two adults accompany the child home. Follow any additional instructions given to you from your surgeon. If you or anyone in your household have experienced Covid symptoms in the past week, please notify your surgeon or the nurse liaison at the phone number below for possible testing. Telephone instructions given to __PATIENT___and asked if any additional questions and then verbalized understanding. Patient advised to call surgeon office or pre surgery nurse liaison [phone] if any additional questions.
--- NOTE | 2024-03-30 07:15 | WPDHPUPDATE1 ---
History and Physical Update Update Date/Time: 03/30/24 07:15 History and Physical has been reviewed, including an updated exam of the patient. There are NO changes in the patient's condition. Risks, benefits, and alternatives have been discussed and questions answered. Patient agrees to proceed with procedure.
[2024-03-30 08:50] VITALS: BP 161/75; PULSE 79; RESP 18; TEMP 36.6; O2SAT 98
[2024-03-30] MEDS: LACTATED RINGERS 1,000 ML 30 ML IV CONT (09:00)
--- NOTE | 2024-03-30 10:03 | WPDANESEPPF ---
Anes - Initial Pre Proc Eval Procedure: Operation Date: 03/30/24 10:30 Proposed Procedures p Amputation of Right Foot Second Digit - Raoul Kang Jr., DPM Date/Time: 03/30/24 10:03 Surgeon: Raoul Kang Jr., DPM Pre Op Diagnosis: dislocated 2nd digit right foot Patient Data Age: 79 Gender: F Height: 1.65 m Weight: 67.15 kg Last Vital Signs Temp 97.9 F 03/30/24 08:50 Pulse 79 03/30/24 08:50 Resp 18 03/30/24 08:50 BP 161/75 H 03/30/24 08:50 Pulse Ox 98 03/30/24 08:50 O2 Del Method Room Air 03/30/24 08:50 Allergies Allergy/AdvReac Type Severity Reaction Status Date / Time No Known Allergies Allergy Verified 03/30/24 09:11 Home Medications Medication Instructions Recorded Confirmed Type aripiprazole 5 mg tablet 5 mg PO DAILY 03/27/24 03/30/24 History bupropion HCl 300 mg 24 hr tablet, 300 mg PO DAILY 03/27/24 03/30/24 History extended release Patient hx anesthesia problems: none Family hx anesthesia problems: none Results Review: All pre-operative results and documents have been reviewed as part of the pre-operative evaluation. [facility] Past Medical History Medical History Lipoedema Lymphedema Mixed hyperlipidemia Polyarthritis Sigmoidoscopy performed Venous insufficiency Surgical History Surgical History H/O arthroscopic knee surgery (~2013) Rt H/O hemorrhoidectomy (~2013) H/O repair of rotator cuff (~2010) History of appendectomy History of bunionectomy (~2006) & Hammertoe - Rt History of carpal tunnel release (~1993) Bilateral History of cataract surgery (~2014) History of tonsillectomy Hx of hysterectomy (~1982) Family History Family History Father Family history of congestive heart failure Patient's father is Mother Family history of congestive heart failure Patient's mother is Sibling Patient's brother is in good health Other Hypertension Social History Social History Smoking status: Never smoker Second hand tobacco smoke exposure: No Alcohol intake: former Substance use: never Substance use type: does not use Lack of Transportation: No Lack of Food: Never True Current Housing: I Have Housing Concerned About Future Housing: No Difficulty Paying Gas/Electric Bills: No Difficulty Paying for Meds: No Currently Unemployed: No Education: Bachelor's Degree Difficulty w/ Childcare or Family Care: No Living arrangements: with family Additional living arrangements comments: Spiritual care concerns: No Anes - Eval Final PreProcedure Day of Procedure 03/30/24 10:03 Patient weight: normal Heart: regular rate and rhythm Lungs: clear to auscultation Airway: Mallampati scale class II Neurological: alert and oriented Last oral intake: >/= 8 hours ASA classification: II Emergent: no Anesthetic plan: proceed Anesthesia type and monitoring: general GIVS and standard monitoring Results Review: All pre-operative results and documents have been reviewed as part of the pre-operative evaluation. Hyperlipidemia, hx of polyarthritis. Pt can walk 1/2 block, mile, no cp or sob. Informed Consent: The patient's anesthetic plan and its attendant risks and benefits were discussed with the patient/family/POA. Questions were solicited and answers provided to the satisfaction of the patient/family/POA.
[2024-03-30] MEDS: ceFAZolin 2 GM/D5W 50 ML 2 GM/50 ML BAG IVPB (10:30)
[2024-03-30] MEDS: BUPivacaine HCL 0.5% 10 ML AMP INFILTRATE (10:55)
[2024-03-30] MEDS: LIDOCAINE HCL 2% PF INJ 5 ML VIAL 20 ML INFILTRATE (10:55)
[2024-03-30 11:15] VITALS: BP 131/71; PULSE 67; RESP 16; O2SAT 97
--- NOTE | 2024-03-30 11:26 | W.PM.PROC2 ---
Procedure Note - Detailed Date of Procedure 03/30/24 Pre-op Diagnosis Dislocated 2nd digit right foot with a painful hammertoe deformity Post-op Diagnosis Same Procedure Performed Amputation of the second digit right foot Surgeon Raoul Kang Jr., [facility] Anesthesia MAC and Local Indications Painful 2nd digit hammertoe right foot Description of Procedure Under mild sedation, the patient was brought to the operating room, placed on the operating table in the supine position. A pneumatic ankle tourniquet was placed about the patient's ankle. Following general anesthesia, I performed a proximal 2nd metatarsal Chapman Block. The foot was then scrubbed, prepped, and draped in the usual aseptic manner. An Esmarch bandage was then used to examine the patient's foot and pneumatic ankle tourniquet was then inflated. Surgery began in the following manner. Attention was directed to the dorsal aspect of the 2nd metatarsal phalangeal joint region where two converging semi elliptical incisions were made about the base of the the 2nd digit. The incision was continued deep down through the subcutaneous tissues using sharp and blunt dissection. All bleeders were cauterized as necessary. A full-length periosteal incision was made overlying the 2nd metatarsal phalangeal joint, disarticulating the 2nd digit. The 2nd digit was removed from the operative site and placed on the back table and later sent for gross. The remaining tissue was healthy and bleeding. All bleeders were cauterized as necessary. The cartilage to the 2nd metatarsal head was normal and healthy. The wound site was then flushed with copious amounts of sterile saline.Next, the periosteum and capsular structures overlying the 2nd metatarsophalangeal joints were reapproximated with 4-0 Vicryl. Next, the skin was reapproximated and coapted utilizing 4-0 Prolene in simple interrupted suture fashion technique. Upon completion of the procedure, the incision was dressed with Adaptic, 4 x 4's, Kerlix, and Coban. The pneumatic ankle tourniquet was then deflated and a prompt hyperemic response noted to all digits of the foot. A surgical shoe was then applied. The patient did very well with the procedure and the anesthesia. The patient was transferred to the recovery room with vital signs stable and vascular status intact to all remaining toes of the affected foot. Following a period of postoperative monitoring, the patient will be discharged home on the following written and oral postoperative instructions: 1. Keep the dressing clean, dry, and intact. Use a cast protector bag with showers. 2. The patient should use a surgical shoe for ambulation postoperatively. 3. The patient should be on bedrest with bathroom privileges and elevate the affected foot when at rest. 4. The patient to contact Dr. Kang for all postop care and if any problems arise. 5. Prescriptions were written for Percocet 2.5/325 to be taken 1 p.o. q.4 to 6 hours as needed for severe pain. Implants None Estimated Blood Loss 1 Drains No Packing No Pathology Yes (Toe sent for gross only) Complications No immediate complications Condition Stable Disposition Same day
[2024-03-30 11:45] VITALS: BP 165/72; PULSE 66; RESP 16; O2SAT 100
[2024-03-30 12:15] VITALS: BP 164/75; PULSE 67; RESP 16
== END 2024-03-30 12:38 | disposition home or self-care (01) ==
PROVIDERS: PCP Nurse Practitioner; Visit Provider Podiatrist Foot & Ankle Surgery
PROC: (CPT 28820; principal; 2024-03-30 10:30)
DX: S93.124A Dislocation of metatarsophalangeal joint of right lesser toe(s), initial encounter (principal); M77.41 Metatarsalgia, right foot; M20.41 Other hammer toe(s) (acquired), right foot; M79.674 Pain in right toe(s)
CPT/HCPCS: 28820; J0690; J2405; J2704; J3010; J7120

== ENCOUNTER 2024-08-15 13:49 | Outpatient (CLI) | payer MEDICARE, SELFPAY ==
--- NOTE | ~2024-08-15 | XR_ITS ---
XR sacrum coccyx min 2V Ordering provider: Jose Desir APRN History: . W19.XXXA - Unspecified fall, initial encounter . Comparison: None. FINDINGS: BONES: No acute fracture or dislocation. JOINTS: The sacroiliac joint spaces are normal. Multilevel facet joint disease. Mild bilateral hip os teoarthritic changes. SOFT TISSUES: Normal. IMPRESSION: No acute osseous abnormality sacrum. Reviewed, dictated and finalized at location A. [employer] MA[employer]
== END 2024-08-15 13:50 | disposition home or self-care (01) ==
PROVIDERS: PCP Nurse Practitioner; Visit Provider Nurse Practitioner
DX: M53.3 Sacrococcygeal disorders, not elsewhere classified (principal); W19.XXXA Unspecified fall, initial encounter
CPT/HCPCS: 72220

== ENCOUNTER 2025-07-01 08:29 | Outpatient (CLI) | payer MEDICARE, SELFPAY ==
--- NOTE | ~2025-07-01 | MR_ITS ---
EXAMINATION: MR thoracic spine wo con DATE: 07/01/2025 09:14 INDICATION: Thoracic back pain TECHNIQUE: Magnetic resonance imaging (MRI) of the thoracic spine was performed without intravenous contrast. Sagittal localizer T1-weighted FSE of the cervicothoracic spine was obtained. Thoracic spine sequences included sagittal T2-weighted FSE, sagittal T1-weighted SE, Sagittal T2-weighted FS FSE, and axial T2-weighted FSE. COMPARISON: CT abdomen dated 12/22/2021 FINDINGS: Mild mid thoracic kyphosis. 10 degrees lower thoracic dextrocurvature. Multiple chronic compression and burst fractures throughout the thoracic spine. This includes: T1 compression fracture with 20% anterior vertebral body height loss T4 mild inferior endplate compression fracture with 10-20% central vertebral body height loss T5 compression fracture with 20% anterior vertebral body height loss T6 burst fracture with 20% anterior vertebral body height loss and minimal posterior vertebral body height loss with 2 mm right paracentral retropulsion T7 and T8 compression fractures with 10% anterior vertebral body height loss T12 burst fracture with 20% anterior vertebral body height loss and 2 mm central retropulsion along the inferior endplate. Subtle low signal intensity within the T12 vertebral body corresponding to methylmethacrylate from prior vertebroplasty. Severe disc height loss with degenerative endplate changes at T7-T8, T10-T11 and T11-T12. Moderate disc height loss at C5-C6, C6-C7, T6-T7, T8-T9 and T9-T10. Mild disc height loss at remaining thoracic, lower cervical and visualized upper lumbar spaces. Small left paracentral disc protrusion at T2-T3, small central disc protrusions at T5-T6. Mild right paracentral retropulsion at the inferior endplate of T6, each resulting in minimal central canal stenosis. Small bilateral paracentral disc protrusions at T7-T8 and diffuse disc bulges at T10- T11 and T11-T12 resulting in mild central canal stenosis. Mild fibrovascular degenerative endplate changes at multiple levels in the mid and lower thoracic spine. Marrow signal is otherwise unremarkable. Multilevel moderate and severe facet osteoarthritis throughout the thoracic spine which contributes to moderate to severe neural foraminal stenosis on the left at T2-T3, and on the right at T12-L1. Moderate neural foraminal stenosis on the right at T5-T6, on the left at T10-T11 and T12-L1 and bilaterally at T11- T12. Mild neural foraminal stenosis at many of the remaining thoracic levels the left and right. Bilateral renal cysts. 4.7 x 3.1 cm right adrenal mass which demonstrated macroscopic fat attenuation on prior CT of the abdomen dated 12/22/2021 consistent with a myelolipoma. IMPRESSION: 1. Mild thoracic kyphosis with 10 degrees lower thoracic dextrocurvature. 2. Severe lower thoracic spondylosis with multiple chronic mild compression and burst fractures. No acute osseous abnormality. 3. Stable right adrenal mass with prior CT findings consistent with a benign myelolipoma. Reviewed, dictated and finalized at location A. IMPRESSION: 1. Mild thoracic kyphosis with 10 degrees lower thoracic dextrocurvature. 2. Severe lower thoracic spondylosis with multiple chronic mild compression and burst fractures. No acute osseous abnormality. 3. Stable right adrenal mass with prior CT findings consistent with a benign my elolipoma.
--- NOTE | ~2025-07-01 | MR_ITS ---
EXAMINATION: MR lumbar spine wo con DATE: 07/01/2025 09:28 INDICATION: Low back pain. TECHNIQUE: Magnetic resonance imaging (MRI) of the lumbar spine was performed without intravenous contrast. Sequences included sagittal T2-weighted FSE, sagittal T2-weighted FS FSE, sagittal T1-weighted FSE, and axial T2-weighted FSE. COMPARISON: Lumbar spine MRI 11/05/2021 FINDINGS: There is 14 degrees levoscoliosis of lumbar spine. There is 3 mm retrolisthesis of T11 and T12, 5 mm retrolisthesis of T12 on L1, 3 mm retrolisthesis of L1 on L2, and 3 mm anterolisthesis of L4 on L5. There is a chronic burst fracture of T12. There are chronic compression fractures of L1, L4, and L5. There is severely decreased disc height at T11-T12 and T12-L1, mildly decreased disc height at L1-L2, moderately decreased disc height at L2- L3, and mildly decreased disc height at L3-L4, L4-L5, and L5-S1. The distal spinal cord signal intensity is normal. The conus medullaris is at T12-L1. There are cysts in the kidneys measuring up to 5.4 cm on the left. The following disc levels are specifically discussed: L1-L2: The disc is bulging and has an annular fissure. There is moderate right and mild left facet joint osteoarthritis. There is mild bilateral neural foraminal stenosis. There is mild central canal stenosis. L2-L3: The disc is bulging. There is severe bilateral facet joint osteoarthritis. There is mild bilateral neural foraminal stenosis. There is mild central canal stenosis. L3-L4: The disc is bulging. There is severe bilateral facet joint osteoarthritis. There is mild bilateral neural foraminal stenosis. There is mild central canal stenosis. L4-L5: The disc is bulging and has an annular fissure. There is severe bilateral facet joint osteoarthritis. There is mild bilateral neural foraminal stenosis. There is mild central canal stenosis. L5-S1: The disc is bulging. There is severe bilateral facet joint osteoarthritis. There is mild left neural foraminal stenosis. There is mild central canal stenosis. IMPRESSION: 1. Severe lumbar and lower thoracic spondylosis, stable from 11/05/2021. 2. Lumbar levoscoliosis. Reviewed, dictated and finalized at location E.
== END 2025-07-01 08:30 | disposition home or self-care (01) ==
LOC: MICIMG 08:31
PROVIDERS: PCP Nurse Practitioner; Visit Provider Nurse Practitioner Family
DX: M43.04 Spondylolysis, thoracic region (principal); M43.8X4 Other specified deforming dorsopathies, thoracic region; M43.06 Spondylolysis, lumbar region; M41.86 Other forms of scoliosis, lumbar region; S22.000A Wedge compression fracture of unspecified thoracic vertebra, initial encounter for closed fracture; E27.9 Disorder of adrenal gland, unspecified; X58.XXXA Exposure to other specified factors, initial encounter
CPT/HCPCS: 72146; 72148